=== PATIENT | male | born 1995 | race Caucasian/White ===

== ENCOUNTER → 2020-09-27 13:03 | Outpatient (BNVA) | payer BC, SELFPAY | PROVIDERS: Visit Provider Family Medicine | DX: Z02.89 Encounter for other administrative examinations (principal); F17.220 Nicotine dependence, chewing tobacco, uncomplicated; Z71.89 Other specified counseling | CPT/HCPCS: 80053; 80061; 85025 ==

== ENCOUNTER → 2021-12-24 11:44 | Outpatient (BNVA) | payer BC, SELFPAY | PROVIDERS: Visit Provider Nurse Practitioner Family | DX: Z00.00 Encounter for general adult medical examination without abnormal findings (principal) | CPT/HCPCS: 80053; 80061; 85025 ==

== ENCOUNTER → 2022-09-17 12:03 | Outpatient (BNVA) | payer BC, SELFPAY | PROVIDERS: PCP Nurse Practitioner Family; Visit Provider Nurse Practitioner Family | DX: Z00.00 Encounter for general adult medical examination without abnormal findings (principal) | CPT/HCPCS: 80053; 80061; 85025 ==